=== PATIENT | female | born 1975 | race Caucasian/White ===

== ENCOUNTER 2022-10-08 15:47 | Observation (INO) | payer OTHER ==
[~2022-10-08] VITALS: Ht 154.9 cm; Wt 65.8 kg
[2022-10-08] MEDS: NACL 0.9% 1,000 ML IV SCH (01:41)
[2022-10-08 16:11] VITALS: BP 125/88
--- NOTE | 2022-10-08 16:27 | NUR ---
Female Automobile Mechanic Radiator accompanied female patient for Pelvic Exam.
[2022-10-08 16:50] LABS: BASOPHILS # (AUTO) 0.1 K/uL (0.00-0.22); BASOPHILS % (AUTO) 1.5 % (0.0-2.0); EOSINOPHILS # (AUTO) 0.4 K/uL (0-0.4); EOSINOPHILS % (AUTO) 4.8 % (0.0-4.0); LYMPHOCYTES # (AUTO) 1.7 K/uL (2.5-16.5); LYMPHOCYTES % (AUTO) 21.8 % (20.5-51.1); MEAN CORPUSCULAR HEMOGLOBIN 24 pg (27-31); MEAN CORPUSCULAR HGB CONC 30 g/dL (33-37); MEAN CORPUSCULAR VOLUME 79.5 fL (80-94); MONOCYTES # (AUTO) 0.6 K/uL (0.8-1.0); MONOCYTES % (AUTO) 7.1 % (1.7-9.3); NEUTROPHILS # (AUTO) 5.2 K/uL (1.8-7.7); NEUTROPHILS % (AUTO) 64.8 % (42.2-75.2); PLATELET COUNT (AUTO) 343 K/uL (140-450); RED BLOOD CELL COUNT(AUTO) 1.92 MIL/uL (4.20-5.40); RED CELL DISTRIBUTION WIDTH 21.9 % (11.6-13.7)
[2022-10-08 16:54] LABS: APPEARANCE,URINE CLEAR (CLEAR); BILIRUBIN,URINE NEGATIVE (NEGATIVE); BLOOD, URINE 3+ (NEGATIVE); COLOR,URINE YELLOW (YELLOW); LEUKOCYTE ESTERASE ,URINE TRACE (NEGATIVE); NITRITE, URINE POSITIVE (NEGATIVE); PH,URINE 6.5 (5.0-9.0); UGLUCOSE NEGATIVE (NEGATIVE)
[2022-10-08 17:04] LABS: ANION GAP 14.3 (8-16); CARBON DIOXIDE 24.7 mmol/L (21-32); CREATININE 0.6 mg/dL (0.6-1.3)
[2022-10-08 17:07] LABS: RBC,URINE TOO NUMEROUS TO COUN /HPF (0-5); TRICHOMONAS,URINE None Seen /HPF (None Seen); YEAST,URINE None Seen /HPF (None Seen)
[2022-10-08 17:09] LABS: HEMATOCRIT 15.3 % (36-48); HEMOGLOBIN 4.6 g/dL (12.0-16.0)
[2022-10-08 18:05] LABS: PROTHROMBIN TIME 9.6 secs (10.8-13.4)
--- NOTE | 2022-10-08 18:56 | NUR ---
blood transfusion started, no ac distress, denies any pain, nsr on cm, o2 sat 98% ra, sr up times 2.
[2022-10-08] MEDS ORDERED: LORazepam 2 MG/ML VIAL IVP PRN (19:40)
[2022-10-08] MEDS ORDERED: ONDANSETRON 4 MG/2 ML VIAL IVP PRN (19:40)
[2022-10-08] MEDS ORDERED: ACETAMINOPHEN 325 MG TAB PO PRN (19:40)
[2022-10-08] MEDS ORDERED: MORPHINE SULFATE 2 MG/ML SYR IVP PRN (19:40)
[2022-10-08 20:00] VITALS: BP 109/66
--- NOTE | 2022-10-08 20:30 | NUR ---
RECEIVED PT FROM ER, PT IS AWAKE,ALERT AND ORIENTED X4, ABLE TO AMBULATE TO THE BED. DENIES PAIN. NO ACUTE RESPIRATORY DISTRESS. ON GOING BLOOD TRANSFUSION ORDERED. SKIN WARM AND DRY TO TOUCH. ORIENTED TO MST UNIT, UPDATED WHITEBOARD, CALL LIGHT GIVEN TO PT, INSTRUCTION ON USE PROVIDED. SAFETY PRECAUTIONS IN PLACE, ENCOURAGED TO CALL IF ASSISTANCE IS NEEDED, PT VERBALLY ACKNOWLEDGED.
--- NOTE | 2022-10-08 21:30 | NUR ---
1ST UNIT OF BLOOD DONE ORDERED. VITAL SIGNS WITHIN NORMAL LIMITS. NO ADVERSE REACTION NOTED.
--- NOTE | 2022-10-08 22:11 | NUR ---
2155- 2ND UNIT OF BLOOD STARTED WITH BEDSIDE VERIFICATION WITH 2ND RN BRENDON. VITAL SIGNS PRIOR TO TRANSFUSION: BP-118/68 HR-81 RR-16 TEMP-97.8 DENIES PAIN. 2211- 15 MINS AFTER START OF TRANSFUSION, NO ADVERSE REACTION NOTED. BP-109/60 HR-94, TEMP-97.6 RR-16. PT DENIES PAIN.
--- NOTE | 2022-10-09 00:30 | NUR ---
ONGOING BLOOD TRANSFUSION. PT TOLERATING WELL.
--- NOTE | 2022-10-09 01:30 | NUR ---
BLOOD TRANSFUSION DONE, NO ADVERSE REACTION NOTED. BP-101/61 HR-86 RR-16 TEMP-98.0
[2022-10-09 04:00] VITALS: BP 112/71
--- NOTE | 2022-10-09 04:00 | NUR ---
VITAL SIGNS TAKEN AND DOCUMENTED. PER PT SHE IS STILL HAVING VAGINAL BLEEDING. DENIES DIZZINESS, DENIES LIGHT HEADEDNESS. CALL LIGHT IN REACH, ENCOURAGED TO CALL IF ASSISTANCE IS NEEDED, PT VERBALLY ACKNOWLEDGED.
[2022-10-09] MEDS: NACL 0.9% 1,000 ML IV SCH ×2 (04:53→15:40)
[2022-10-09 05:30] LABS: BASOPHILS # (AUTO) 0.1 K/uL (0.00-0.22); BASOPHILS % (AUTO) 1.1 % (0.0-2.0); EOSINOPHILS # (AUTO) 0.5 K/uL (0-0.4); EOSINOPHILS % (AUTO) 5.9 % (0.0-4.0); HEMATOCRIT 22.7 % (36-48); HEMOGLOBIN 7.4 g/dL (12.0-16.0); LYMPHOCYTES # (AUTO) 1.8 K/uL (2.5-16.5); LYMPHOCYTES % (AUTO) 23.9 % (20.5-51.1); MEAN CORPUSCULAR HEMOGLOBIN 26 pg (27-31); MEAN CORPUSCULAR HGB CONC 33 g/dL (33-37); MEAN CORPUSCULAR VOLUME 80.5 fL (80-94); MONOCYTES # (AUTO) 0.6 K/uL (0.8-1.0); MONOCYTES % (AUTO) 7.7 % (1.7-9.3); NEUTROPHILS # (AUTO) 4.7 K/uL (1.8-7.7); NEUTROPHILS % (AUTO) 61.4 % (42.2-75.2); PLATELET COUNT (AUTO) 290 K/uL (140-450); RED BLOOD CELL COUNT(AUTO) 2.82 MIL/uL (4.20-5.40); RED CELL DISTRIBUTION WIDTH 19.8 % (11.6-13.7); WHITE BLOOD COUNT (AUTO) 7.6 K/uL (4.8-10.8)
[2022-10-09 05:58] LABS: ALBUMIN 2.7 g/dL (3.4-5.0); ANION GAP 12.7 (8-16); CARBON DIOXIDE 25.2 mmol/L (21-32); CREATININE 0.5 mg/dL (0.6-1.3); MAGNESIUM 2.1 mg/dL (1.8-2.4); POTASSIUM 3.9 mmol/L (3.5-5.1); TOTAL BILIRUBIN 1.3 mg/dL (0.0-1.0)
--- NOTE | 2022-10-09 06:22 | NUR ---
PATIENT IS ASLEEP. NO DISTRESS NOTED. ALL NEEDS ATTENDED TO. SAFETY PRECAUTIONS MAINTAINED DURING THE SHIFT, CALL LIGHT REMAINS WITHIN REACH.
--- NOTE | 2022-10-09 07:15 | NUR ---
RECEIVED PATIENT FROM PM NURSE FOR CONTINUATION OF CARE. PATIENT SEEN ON BED ASLEEP, NORMAL RISE AND FALL OF CHEST. CARE PLAN REVEIEWED, PATIENT CARE CONTINUED.
[2022-10-09] MEDS ORDERED: medroxyPROGESTERone 10 MG TAB PO SCH (13:00)
[2022-10-09 15:24] LABS: BASOPHILS # (AUTO) 0.1 K/uL (0.00-0.22); BASOPHILS % (AUTO) 1.2 % (0.0-2.0); EOSINOPHILS # (AUTO) 0.5 K/uL (0-0.4); EOSINOPHILS % (AUTO) 6.7 % (0.0-4.0); HEMATOCRIT 23.5 % (36-48); HEMOGLOBIN 7.6 g/dL (12.0-16.0); LYMPHOCYTES # (AUTO) 1.9 K/uL (2.5-16.5); LYMPHOCYTES % (AUTO) 25.3 % (20.5-51.1); MEAN CORPUSCULAR HEMOGLOBIN 26 pg (27-31); MEAN CORPUSCULAR HGB CONC 33 g/dL (33-37); MEAN CORPUSCULAR VOLUME 80.5 fL (80-94); MONOCYTES # (AUTO) 0.6 K/uL (0.8-1.0); MONOCYTES % (AUTO) 8.3 % (1.7-9.3); NEUTROPHILS # (AUTO) 4.5 K/uL (1.8-7.7); NEUTROPHILS % (AUTO) 58.5 % (42.2-75.2); PLATELET COUNT (AUTO) 305 K/uL (140-450); RED BLOOD CELL COUNT(AUTO) 2.92 MIL/uL (4.20-5.40); RED CELL DISTRIBUTION WIDTH 19.9 % (11.6-13.7); WHITE BLOOD COUNT (AUTO) 7.7 K/uL (4.8-10.8)
--- NOTE | 2022-10-09 19:17 | NUR ---
ENDORSED PATIENT TO PM NURSE FOR CONTINUATION OF CARE. PATIENT IS FOR DISCHARGE AWAITING RIDE IN HER ROOM
--- NOTE | 2022-10-09 19:30 | NUR ---
RECEIVED ENDORSEMENT FROM JIMMY RN, AND PATIENT WAS STABLE FOR DISCHARGE. PATIENT ALERT AND ORIENTED X 4. PATIENT IS AWAITING PERSON RIDE TO GO HOME FOR DISCHARGE. ALL IV FLUIDS HAVE BEEN REMOVED FOR DISCHARGE. PATIENT IS AWARE TO NOTIFY NURSE TO TRANSFER OUT TO PERSON VEHICLE VIA WHEELCHAIR. PATIENT WAS ABLE TO USE CALL LIGHT WITHOUT INCIDENT. SIDE RAILS X 2 FOR SAFETY AND COMFORT. FINAL VITAL SIGNS NOTED 98.9 HR 87 RR 18 BP 109/62 O2SAT 98. [id number]
--- NOTE | 2022-10-09 19:45 | NUR ---
PATIENT WAS DISCHARGED TO PERSONAL VEHICLE VIA WHEELCHAIR. PATIENT WAS DISCHARGED TO DAUGHTER. PATIENT HAD MEDICAL RECORD ID REMOVED. PATIENT WAS ALERT AND ORIENTED. FACIAL AFFECT WAS APPROPRIATE. PERRLA. CLEAN APPEARANCE IN PERSONAL CLOTHING. NURSING WILL TURN IN CHART FOR MEDICAL RECORDS. [email or web address]
--- NOTE | 2022-10-14 14:40 | NUR ---
CALLED DR [facility] OFFICE LOCATED AT [address] [place] [id number]. SPOKE WITH CELSO WHO INFORMED ME PATIENT HAD AN APPOINTMENT ON 10/12/2022 AT 1500.
== END 2022-10-09 19:50 | disposition home or self-care (01) ==
LOC: MED 15:47 → MMU 19:41 → MTU 19:57
PROVIDERS: ADMIT Hospitalist; ATTEND Hospitalist
DX: D62 Acute posthemorrhagic anemia (principal); Z20.822 Contact with and (suspected) exposure to COVID-19; N93.9 Abnormal uterine and vaginal bleeding, unspecified; D53.9 Nutritional anemia, unspecified; Z79.899 Other long term (current) drug therapy
CPT/HCPCS: 36415; 36430; 76856; 80048; 80053; 81001; 83735; 85025; 85610; 85730; 86886; 86900; 86901; 86920; 87081; 87086; 87426; 96360; 96361; 99285; G0378; P9016; Q0092

== ENCOUNTER 2022-11-30 09:41 | Day surgery (SDC) | payer OTHER ==
[2022-11-24 10:49] LABS: BASOPHILS # (AUTO) 0.1 K/uL (0.00-0.22); BASOPHILS % (AUTO) 2.2 % (0.0-2.0); EOSINOPHILS # (AUTO) 0.3 K/uL (0-0.4); EOSINOPHILS % (AUTO) 4.9 % (0.0-4.0); HEMOGLOBIN 7.1 g/dL (12.0-16.0); LYMPHOCYTES # (AUTO) 1.3 K/uL (2.5-16.5); MEAN CORPUSCULAR HEMOGLOBIN 22 pg (27-31); MEAN CORPUSCULAR HGB CONC 31 g/dL (33-37); MEAN CORPUSCULAR VOLUME 70.6 fL (80-94); MONOCYTES # (AUTO) 0.4 K/uL (0.8-1.0); MONOCYTES % (AUTO) 8.1 % (1.7-9.3); NEUTROPHILS # (AUTO) 3.4 K/uL (1.8-7.7); NEUTROPHILS % (AUTO) 60.8 % (42.2-75.2); PLATELET COUNT (AUTO) 268 K/uL (140-450); RED BLOOD CELL COUNT(AUTO) 3.26 MIL/uL (4.20-5.40); RED CELL DISTRIBUTION WIDTH 17.9 % (11.6-13.7); WHITE BLOOD COUNT (AUTO) 5.5 K/uL (4.8-10.8)
[2022-11-24 11:08] LABS: ALBUMIN 3.4 g/dL (3.4-5.0); ANION GAP 10.5 (8-16); CARBON DIOXIDE 27.9 mmol/L (21-32); CREATININE 0.5 mg/dL (0.6-1.3); POTASSIUM 4.4 mmol/L (3.5-5.1); TOTAL BILIRUBIN 0.6 mg/dL (0.0-1.0)
[~2022-11-30] VITALS: Ht 154.9 cm; Wt 67.1 kg
[2022-11-30] MEDS ORDERED: KETOROLAC 30 MG/ML VIAL ONE ×2 (11:00→11:54)
[2022-11-30] MEDS ORDERED: fentaNYL citrate 0.05 MG/ML - 50mL vial IV ONE (11:00)
[2022-11-30] MEDS ORDERED: METOCLOPRAMIDE 10 MG/2 ML INJ VIAL ONE ×2 (11:00→11:52)
[2022-11-30] MEDS ORDERED: PROPOFOL 200 MG/20 ML VIAL IV ONE ×2 (11:00→11:29)
[2022-11-30] MEDS ORDERED: ONDANSETRON 4 MG/2 ML VIAL ONE ×2 (11:00→11:52)
[2022-11-30] MEDS ORDERED: MIDAZOLAM 2 MG/2 ML VIAL ONE ×3 (11:00→11:30)
[2022-11-30] MEDS ORDERED: SEVOFLURANE 250 ML BTL INH ONE (11:00)
[2022-11-30] MEDS ORDERED: DEXAMETHASONE 4 MG/ML VIAL ONE ×2 (11:00→11:52)
[2022-11-30] MEDS ORDERED: diphenhydrAMINE 50 MG/ML VIAL ONE (11:11)
[2022-11-30] MEDS ORDERED: fentaNYL citrate 0.05 MG/ML VIAL ONE ×2 (11:12→11:30)
[2022-11-30] MEDS ORDERED: LIDOCAINE 2% 100 MG/5 ML UJET TP ONE (11:12)
[2022-11-30] MEDS ORDERED: LIDOCAINE MPF 2% 100 MG/5 ML VIAL INJ ONE (11:55)
[2022-11-30] MEDS ORDERED: ONDANSETRON 4 MG/2 ML VIAL IVP PRN (12:20)
[2022-11-30] MEDS ORDERED: HYDROmorphone 1 MG/ML AMP IVP PRN (12:20)
== END 2022-11-30 13:30 | disposition home or self-care (01) ==
LOC: MOR 09:41 → MMU 09:41 → MOR 13:30
PROVIDERS: ATTEND Obstetrics & Gynecology
DX: N92.0 Excessive and frequent menstruation with regular cycle (principal); N84.1 Polyp of cervix uteri; J45.909 Unspecified asthma, uncomplicated; F17.210 Nicotine dependence, cigarettes, uncomplicated; Z98.51 Tubal ligation status; Z79.899 Other long term (current) drug therapy
CPT/HCPCS: 36415; 58563; 80053; 85025; J1100; J1885; J2001; J2250; J2405; J2704; J2765; J3010; J7120; J1200